=== PATIENT | female | born 2000 | race Asian ===

== ENCOUNTER 2021-07-30 17:04 | Outpatient (CLI) | payer BC, OTHER ==
[2021-07-30 17:37] LABS: PLATELET COUNT 294 K/uL (152-353)
[2021-07-30 17:49] LABS: POTASSIUM 4.1 mmol/L (3.6-5.2)
== END 2021-07-30 20:12 | disposition home or self-care (01) ==
LOC: LABW 17:04
PROVIDERS: ATTEND Nurse Practitioner Family
DX: Z33.1 Pregnant state, incidental (principal)
CPT/HCPCS: 36415; 80053; 84702; 85027